=== PATIENT | male | born 1960 | race Caucasian/White ===

== ENCOUNTER 2023-05-29 14:17 | Inpatient (IN) | payer OTHER, SELFPAY ==
[2023-05-29 11:22] VITALS: BP 148/85
[2023-05-29 11:31] VITALS: BP 135/89
--- NOTE | 2023-05-29 11:52 | ED.GENMED ---
History of Present Illness
General
Chief Complaint: Breathing Problem
Source: patient
Exam Limitations: none
Time Seen by Provider: 05/29/23 11:28
Travel History
Have you had any contact with someone who has COVID-19?: No
Do you have any symptoms of coronavirus? Fever > 100 degrees, chills, cough, shortness of breath, sore throat, loss of taste or smell, muscle aches, or headache?: Yes
Symptoms:: sob
History of Present Illness
History of Present Illness:
63-year-old male progressive shortness of breath over 3 to 4 days. Some cough. No pleuritic pain no back pain. History of same. Symptoms are moderate to severe in nature.
Past History
Past History
ED Past Medical History: COPD, HTN and Other (BPH)
ED Past Surgical History: Other
Social History
Tobacco: Smoker (heavy cigar smoker)
Personal:
Living: with family
Employment: Employed
Review of Systems
Review of Systems
All Other Systems: Not applicable
Constitutional: Denies fever
Cardiac: Reports no symptoms
ABD/GI: Reports no symptoms
Phy Exam
Physical Exam
Physical Exam:
GENERAL: Alert and oriented. Mild tachypnea at rest and mildly breathless
EYE: Orbits normal.
NECK: Supple, no significant adenopathy.
ENT: Pharynx without erythema
CARDIAC: Regular rate and rhythm without any obvious murmurs.
LUNGS: Decreased breath sounds diffusely with mild expiratory wheezing more on the right base. Moderate tachypnea
ABDOMEN: Soft, without focal tenderness or distention
NEUROLOGICAL: Alert and oriented , grossly non-focal
SKIN: Warm and dry, no rash or lesion, no discoloration, skin intact.
MUSCULOSKELETAL: No edema,no deformity.Good color
PSYCH: Normal and appropriate interaction.
Scores
Heart Failure Risk
Heart Failure Risk Score: Not Applicable
Course
Orders/Labs/Results
Orders:
Orders
05/29/23 11:25
Electrocardiogram (*1) Urgent
Reason for Study: Shortness of Breath
EKG- Treatment ONCE
05/29/23 11:32
EKG- Treatment ONCE
IV Insert/Care/Rem.- Treatment PRN
Albuterol Sulfate [Ventolin Nebules] 7.5 mg INH R NOW STA
Dexamethasone Sod Phosphate [Decadron] 10 mg IV NOW STA
Ipratropium/Albuterol Sulfate [Duoneb] 3 ml INHALATION R NOW ONE
CR Chest Portable - 1 View Urgent
Comment:
Reason For Exam: sob
Reason Study Needs to be Portable: Unable to Transport
O2 Therapy [RESP] Stat
Titrate/Wean O2 to maintain O2 sat greater than (%): 94
Pulse Ox/cont/shift [RESP] Stat
Quantity: 1
05/29/23 12:01
Basic Metabolic Panel Urgent
Complete Blood Count/With Diff Urgent
NT-proBNP Urgent
Troponin I Urgent
Blood Culture Q30M
LEIGH ANN Source: Blood/Venous
Specimen Description:
Blood Culture Q30M
LEIGH ANN Source: Blood/Venous
Specimen Description:
05/29/23 12:11
COVID-19 Antigen Urgent
Source: Nasal Swab
Influenza A+B Rapid Molecular Urgent
LEIGH ANN Source: Nasal Swab
Specimen Description:
05/29/23 13:53
Admit/Transfer Patient As Directed
Co-Sign Provider:
Level of Care: Inpatient admission
Assign to:: Medical/Surgical
Physician / Group: giovani marion
Diagnosis: acute bronchitis
Reason for Hospitalization: acute bronchitis
Expected length of stay greater than two midnights?: Yes
ELOS- Estimated Length of Stay in days: 3
I certify the patient meets the requirements for IP care: Yes
Code Status As Directed
Resuscitation Status: Full Code
Smoking Cessation Counseling [RESP] Routine
05/29/23 Dinner
Regular
At Your Request: Full Participation
Does patient need a safe tray?: No
05/29/23 15:38
Acetaminophen [Tylenol] 650 mg PO Q4HPRN PRN
Guaifenesin [Mucinex] 600 mg PO [id number] PRN
Ipratropium/Albuterol Sulfate [Duoneb] 3 ml INH R Q4HPRN PRN
05/29/23 15:38
Activity As Directed
Activity Level: As Tolerated
Vital Signs As Directed
Frequency: Per unit guidelines
O2 Therapy [RESP] Routine
Nasal Cannula Liter Flow: 2 LPM
Titrate/Wean O2 to maintain O2 sat greater than (%): 92
Pulse Ox/spot Check [RESP] Routine
Quantity: 1
Ot Eval And Treat Routine
Pt Eval And Treat Routine
Activity Level: As Tolerated
DX Deep Vein Thrombosis Video Routine
05/29/23 16:00
Ipratropium/Albuterol Sulfate [Duoneb] 3 ml INH R QID
05/29/23 16:40
Sputum Culture [Respiratory Culture/Gram Stain] Routine
LEIGH ANN Source: Sputum
Specimen Description:
Date Specimen was Collected: 05/29/23
Time Specimen was Collected: 14:55
05/29/23 18:00
Enoxaparin Sodium [Lovenox] 40 mg SC QPM
05/29/23 20:00
Doxycycline [Vibramycin] 100 mg PO Q12
05/30/23 00:00
Dexamethasone Sod Phosphate [Decadron] 4 mg IV Q12H
05/30/23 05:37
Basic Metabolic Panel IN AM
Complete Blood Count/With Diff IN AM
05/30/23 08:00
Nicotine [Nicoderm Transdermal] 21 mg TRANSDERM DAILY
Rosuvastatin Calcium [Crestor] 20 mg PO DAILY
Tamsulosin [Flomax] 0.4 mg PO DAILY
05/31/23 07:57
Basic Metabolic Panel IN AM
Complete Blood Count/With Diff IN AM
Abnormal Lab Results
05/29/23
12:01
WBC 12.3 H 10^3/uL
(4.8-10.8)
MCH 33.4 H pg
(27.0-31.0)
Abs Immat Gran (auto) 0.1 H 10^3/uL
(0-0.05)
Absolute Neuts (auto) 9.7 H 10^3/uL
(1.4-6.5)
Absolute Lymphs (auto) 0.8 L 10^3/uL
(1.2-3.4)
Absolute Monos (auto) 1.6 H 10^3/uL
(0.1-0.6)
Neutrophils % 79.4 H %
(42.2-75.2)
Lymphocytes % 6.4 L %
(20.5-51.1)
Monocytes % 13.0 H %
(1.7-9.3)
Potassium 3.3 L mmol/L
(3.5-5.1)
Chloride 94 L mmol/L
(98-107)
Glucose 130 H mg/dl
(70-99)
05/29/23 12:01
05/29/23 12:01
Vital Signs
Initial and Last Documented VS:
Initial Vital Signs
Temp Pulse Resp BP Pulse Ox
98.0 F 117 18 148/85 89
05/29/23 11:22 05/29/23 11:22 05/29/23 11:22 05/29/23 11:22 05/29/23 11:22
Last Documented Vital Signs
Temp Pulse Resp BP Pulse Ox
98.2 F 96 18 139/93 94
05/31/23 07:00 05/31/23 07:41 05/31/23 07:41 05/31/23 07:00 05/31/23 08:53
MDM/Problems Addressed
Differential Diagnosis Includes:
Patient with dyspnea shortness of breath.. Likely COPD exacerbation. Workup in progress. Room air pulse ox 88%.
*Radiology
Radiology exam reviewed: preliminary read by ED provider (Negative)
*Pulse Oximetry
Patient hypoxic: yes
*EKG
Interpreted by ED Provider?: Yes
Comparison EKG: changes noted
Heart Rate: 112
Rate: tachycardiac
Rhythm: sinus
[place]: normal axis
Interval: normal interval
QRS Pattern: normal QRS
Ischemia: no ischemia
*Medical Typist Interpretation
Rate: tachycardiac
Interpretation: abnormal
Heart Rate: 110
Rhythm: sinus
*Critical Care Note
Total Time (30-74mins, 75-104mins- exclusive of procedures): Not Applicable
Data Reviewed
Review of Other/Old Records Reveals: Labs, Records, Radiology Studies and Discharge Summary
Update Note
Update Note:
Patient mildly improved on the nebs although still with diffuse expiratory wheezing. Hypoxic on ER arrival. Warrants admission for further care
ED Attending Note
-
Portions of this chart may have been created with voice recognition software.� Occasional wrong word or��sound alike� substitutions may have occurred due to the inherent limitations of voice recognition software.
Discharge Plan
Departure
Patient Disposition: Admit
Date of Disposition: 05/29/23
Time of Disposition: 12:58
Presentation/result/management discussed w/ accepting MD/DO: Hospitalist
Discharge Problem:
COPD exacerbation
Interventions
Interventions:
*Risk Screen - Suicide Last Done: 05/29/23 11:22
*General Assessment Last Done: 05/29/23 11:22
*Neglect/Abuse Screening Last Done: 05/29/23 11:22
ED- Fall Risk Assessment Last Done: 05/29/23 12:25
*ED COVID-19 Vaccine History Last Done: 05/29/23 11:22
*Nursing Disposition Last Done: 05/29/23 16:05
ED- Cardiac Assessment Last Done: 05/29/23 12:25
ED- Pulmonary Assessment Last Done: 05/29/23 12:25
Discharge Date and Time
Discharge Date/Time: 05/29/23 16:05
[2023-05-29] MEDS: DUONEB 3 ML INHALATION (12:05)
[2023-05-29] MEDS: DECADRON 10 MG IV (12:05)
[2023-05-29] MEDS: VENTOLIN NEBULES 7.5 MG INH (12:05)
[2023-05-29 12:21] VITALS: BMI 25.2
[2023-05-29 12:22] LABS: % Basophils 0.5 % (0-2); % Eosinophils 0.2 % (0-6); % Immature Granulocytes 0.5 % (0-0.5); % Lymphocytes 6.4 % (20.5-51.1); % Neutrophils 79.4 % (42.2-75.2); Absolute Basophils 0.1 10^3/uL (0-0.2); Absolute Immature Granulocytes 0.1 10^3/uL (0-0.05); Absolute Lymphocytes 0.8 10^3/uL (1.2-3.4); Absolute Monocytes 1.6 10^3/uL (0.1-0.6); Absolute Neutrophils 9.7 10^3/uL (1.4-6.5); Hematocrit 44.6 % (39.0-52.0); Mean Corp Hgb Conc. 35.9 g/dL (33.0-37.0); Mean Corpuscular Hgb 33.4 pg (27.0-31.0); Mean Corpuscular Volume 93.1 fL (80.0-94.0); Mean Platelet Volume 10.1 fL (7.4-10.4); Nucleated Red Blood Cells % 0 % (-); Platelet Count 157 10^3/uL (130-400); Red Blood Cell Count 4.79 10^6/uL (4.70-6.10); Red Cell Dist. Width 11.7 % (11.5-14.5); White Blood Cell Count 12.3 10^3/uL (4.8-10.8)
[2023-05-29 12:35] LABS: Blood Urea Nitrogen 17 mg/dl (9-20); Calcium 9.2 mg/dl (8.4-10.2); Carbon Dioxide 30 mmol/L (22-30); Chloride 94 mmol/L (98-107); Estimated Creatinine Clearance 102 ml/min; Glucose 130 mg/dl (70-99); Potassium 3.3 mmol/L (3.5-5.1); Sodium 136 mmol/L (135-145); eGFR > 60.00
[2023-05-29 12:47] LABS: NT-proBNP 101 pg/ml; Troponin I < 0.012 ng/ml
[2023-05-29 12:48] LABS: COVID-19 Antigen Negative (Negative)
[2023-05-29 13:00] VITALS: BP 153/88
--- NOTE | 2023-05-29 13:26 | HPS.HSE ---
Addendum entered and electronically signed by Aaron Tucker MD 05/29/23 14:17:
I saw and examined the patient.
The DAMASCENER or PA's note was reviewed and I agree with the note.
Comment: Patient relates a known history of COPD active smoker still not oxygen dependent but has had 4 days of productive tenacious thick and green sputum with cough also may have underlying history of alcohol abuse with presents with no definitive
febrile course and only minor leukocytosis with some minor interstitial changes on chest x-ray with no definitive infiltrate. Presently on 2 L nasal flow oxygen. Patient was given a single dose of dexamethasone 10 mg IV in the ED along with
albuterol neb with some relief present pulse ox of 95% on O2 and looks more comfortable.
Lungs show some crackles more so on the left than the right without definitive wheezing no accessory muscle usage
COVID and influenza negative
Patient has borderline tachycardia with sinus rhythm on telemetry
Abdomen benign
No lower extremity edema
Degree of bronchospasm at least presently not impressive and would place lunch low-dose Decadron every 12 and low threshold to discontinue tomorrow if similar auscultation exam
Empiric doxycycline/agree with sending sputum
Nicotine patch although patient may refuse states he has them at home.'
Titrate oxygen to need
Monitor for alcohol withdrawal
Agree with holding hydrochlorothiazide till correction of hypokalemia
Rest of the exam and assessment and plan as outlined by DAMASCENER and agreed upon
Icombination of underlying COPD/bronchitis/viral origin
Original Note:
Family Physician
-
Family Physician: Adriane Padilla
Chief Complaint
-
Shortness of breath, cough
History of Present Illness
63-year-old male complaining of shortness of breath over the past 3 to 4 days with a green productive cough. He denies fever, chills, chest pain, abdominal pain, nausea, vomiting, diarrhea, urinary symptoms, sick contacts. He has past medical
history of COPD, active smoker, alcohol abuse BPH, erectile dysfunction, HLD.
Medical History
Past Medical History
Past Medical History: Reports Other (COPD, active smoker, alcohol abuse BPH, erectile dysfunction, HLD)
Past Surgical History: Reports None
Social History
Tobacco: Smoker (29-year 1 pack/day)
Alcohol: Daily (2 beers and 4 beers on 2 out of 4 weekends)
Personal: (Currently in process of divorce)
Living: With Family
Employment: Employed
Family History
Family History: Other (Mother age 59 lupus, father age 61 CHF)
Allergies / Home Medications
Allergies reflects when Allergies were last updated in [facility].
Home Medications with original date entered in [facility]
Allergy/Medication List:
Allergies
Allergy/AdvReac Type Severity Reaction Status Date / Time
No Known Allergies Allergy Verified 05/29/23 11:24
Home Medications
albuterol sulfate 90 mcg/actuation aerosol inhaler 2 puff inhalation R Q4HPRN PRN sob/wheezing 06/05/22
hydrochlorothiazide 25 mg tablet 25 mg PO DAILY Fluid retention/Swelling 06/05/22
rosuvastatin 20 mg tablet 20 mg PO DAILY High cholesterol 06/05/22
tamsulosin 0.4 mg capsule (Flomax) 0.4 mg PO DAILY #20 caps 06/26/22
Motrin 2 tab PO BIDPRN PRN mild pain 05/29/23
Vitamin D1 1 tab PO DAILYPRN PRN supplement 05/29/23
guaifenesin 600 mg tablet, extended release 12 hr (Mucinex) 600 mg PO [id number] PRN cough 05/29/23
sildenafil 100 mg tablet 100 mg PO DAILYPRN PRN erectile dysfunction 05/29/23
tadalafil 20 mg tablet 20 mg PO DAILYPRN PRN erectile dysfunction 05/29/23
tiotropium 2.5 mcg-olodaterol 2.5 mcg/actuation mist for inhalation (Stiolto Respimat) 2 puff inhalation R DAILY 05/29/23
Review of Systems
-
History Source: Patient
A 12 point ROS was completed and negative except as noted: Yes
Constitutional: Denies Fever, Fatigue or Chills
EENT: Denies Sore Throat or Runny Nose
Respiratory: Reports Cough (Productive green in color) and Trouble Breathing
Cardiac: Denies Chest Pain, Diaphoresis, Palpitations or Syncope
Abdomen/GI: Denies Abdominal Pain, Nausea, Vomiting or Diarrhea
: Denies Dysuria, Frequency, Flank Pain, Incontinence, Difficulty Voiding or Urgency
Musculoskeletal: Denies Joint Pain or Edema
Skin: Denies Itching or Rash
Neurological: Denies Dizzy, Headache or Weakness
Endocrine: Reports No Symptoms
Hematologic/Lymphatic: Reports No Symptoms
Psych: Reports Calm
Physical Exam
Vital Signs
Vital Signs
Temp Pulse Resp BP Pulse Ox
98.0 F 106 24 153/88 94
05/29/23 11:22 05/29/23 13:15 05/29/23 13:15 05/29/23 13:00 05/29/23 13:15
Physical Exam
General: Comfortable and Conversant; No Pain, Fever or Chills
HEENT: NormoCephalic, Anicteric, PERRLA, [place] Conjunctivae and No Ptosis
Respiratory: Other (Decreased bilaterally throughout both lung galvez); No Wheezes
Cardiac: S1/S2 and Regular Rhythm; No Murmur, Rub, Gallop or Peripheral Edema
Breast: Deferred by me
GI: Soft, Non Tender, Normal Bowel Sounds and No Hepatosplenomegaly
Rectal: Deferred by Provider
Genito-urinary: Deferred by me
Musculoskeletal: No Clubbing, No Cyanosis and No Edema
Skin: Warm and Dry; No Rash or Jaundice
Neuro: AO x 3, No Motor Deficits and Nonfocal/grossly intact; No No Sensory Deficits or Slurred Speech
Psych: Calm
Laboratory Results
-
05/29/23 12:01
05/29/23 12:01
Laboratory Results
Troponin I < 0.012 ng/ml 05/29/23 12:01
Impression/Plan
-
Impression/plan:
Admit to MedSurg
#Acute hypoxic resp insuff 2/2 to acute on chronic COPD exacerbation vs acute bronchitis
92% 2 LNC, 153/88
BNP 101, COVID-negative
-IV Decadron 4 mg every 12 hours
-Sputum culture
-Continue DuoNebs
-Doxycycline 100 mg every 12 hours
-Follow CBC, BMP
-PT/OT eval
CXR: Pulmonary interstitial markings at least top normal canals with mild interstitial edema or pneumonitis
#Hypokalemia likely secondary to diuretics
-K3.3 will give 40 KCl follow BMP
-Hold HCTZ 25 mg daily
EKG: Sinus tach 112 bpm, QTc 469 MS
#Nicotine abuse
1 pack/day x 29 years
-Cessation advised
-Nicotine transdermal patch
#Alcohol abuse
Reports drinks 2 beers a day and approximately 4 beers on weekends 2 out of 4
Cessation advised
MSAs screen with protocol
#BPH
#Hx erectile dysfunction
-Continue Flomax
-Hold sildenafil as needed
#HLD
-Continue Crestor 20 mg daily
DVT prophylaxis
Subcu Lovenox
Full code
[2023-05-29 14:00] VITALS: BP 136/86
[2023-05-29 15:45] VITALS: BP 152/83; BMI 25.9
[2023-05-29] MEDS: DUONEB INH (15:51)
[2023-05-29 16:27] LABS: INR 1.08; PT 13.8 Sec (11.4-14.6)
[2023-05-29 16:28] LABS: APTT 45.5 Sec (23.4-35.0)
[2023-05-29 16:34] LABS: GGTP 80 U/L (15-73); Magnesium 2.3 mg/dl (1.6-2.3); Phosphorus 3.9 mg/dl (2.5-4.5)
[2023-05-29 16:35] LABS: Alcohol None Detected
[2023-05-29 16:41] LABS: B-Hydroxybutyrate 2.21 mmol/L (0.02-0.27)
[2023-05-29] MEDS: MUCINEX 600 MG PO (18:05)
[2023-05-29] MEDS: LOVENOX 40 MG SC (18:05)
[2023-05-29] MEDS: VIBRAMYCIN 100 MG PO (20:00)
[2023-05-29] MEDS: THIAMINE INJECTION 200 MG IV (20:01)
[2023-05-29] MEDS: DUONEB 3 ML INH (20:18)
[2023-05-29] MEDS: KCL 40 MEQ PO (21:28)
[2023-05-29 23:17] VITALS: BP 137/85
[2023-05-29] MEDS: DECADRON 4 MG IV (23:30)
[2023-05-30 00:04] LABS: Urine Albumin 1+ (Neg - Trace); Urine Bilirubin 1+ (Negative); Urine Character Clear (Clear); Urine Color Amber; Urine Glucose 2+ (Negative); Urine Ketone 2+ (Negative); Urine Leukocyte Trace (Negative); Urine Nitrite Negative (Negative); Urine Occult Blood Negative (Negative); Urine Urobilinogen Negative (Neg - 1+)
[2023-05-30 00:29] LABS: Amphetamines Negative (Negative); Barbiturates Negative (Negative); Benzodiazepines Negative (Negative); Buprenorphine Negative (Negative); Cocaine Negative (Negative); Marijuana Negative (Negative); Methadone Negative (Negative); Methamphetamines Negative (Negative); Opiates Negative (Negative); Phencyclidine Negative (Negative); Tricyclic Antidepressants Negative (Negative)
[2023-05-30 01:08] LABS: Urine Bacteria Moderate (Negative); Urine White Cell 0-2 /HPF (0-5)
[2023-05-30] MEDS: MUCINEX 600 MG PO ×2 (06:12→19:57)
[2023-05-30 06:31] LABS: % Basophils 0.3 % (0-2); % Immature Granulocytes 0.9 % (0-0.5); % Lymphocytes 5.2 % (20.5-51.1); % Monocytes 5.7 % (1.7-9.3); % Neutrophils 87.9 % (42.2-75.2); Absolute Immature Granulocytes 0.1 10^3/uL (0-0.05); Absolute Lymphocytes 0.6 10^3/uL (1.2-3.4); Absolute Monocytes 0.6 10^3/uL (0.1-0.6); Absolute Neutrophils 9.6 10^3/uL (1.4-6.5); Hematocrit 42.8 % (39.0-52.0); Hemoglobin 15.1 g/dL (13.0-18.0); Mean Corp Hgb Conc. 35.3 g/dL (33.0-37.0); Mean Corpuscular Hgb 32.4 pg (27.0-31.0); Mean Corpuscular Volume 91.8 fL (80.0-94.0); Mean Platelet Volume 10.3 fL (7.4-10.4); Nucleated Red Blood Cells % 0 % (-); Platelet Count 173 10^3/uL (130-400); Red Blood Cell Count 4.66 10^6/uL (4.70-6.10); Red Cell Dist. Width 11.6 % (11.5-14.5); White Blood Cell Count 10.9 10^3/uL (4.8-10.8)
[2023-05-30 06:38] LABS: Blood Urea Nitrogen 17 mg/dl (9-20); Calcium 8.8 mg/dl (8.4-10.2); Carbon Dioxide 31 mmol/L (22-30); Chloride 99 mmol/L (98-107); Estimated Creatinine Clearance 102 ml/min; Glucose 186 mg/dl (70-99); Potassium 3.9 mmol/L (3.5-5.1); Sodium 135 mmol/L (135-145); eGFR > 60.00
[2023-05-30 07:00] VITALS: BP 135/84
[2023-05-30] MEDS: DUONEB 3 ML INH ×4 (07:25→19:56)
[2023-05-30] MEDS: NICODERM TRANSDERMAL 21 MG TRANSDERM (08:36)
[2023-05-30] MEDS: FOLVITE 1 MG PO (08:36)
[2023-05-30] MEDS: FLOMAX 0.400000000000000022 MG PO (08:36)
[2023-05-30] MEDS: VIBRAMYCIN 100 MG PO ×2 (08:37→19:57)
[2023-05-30] MEDS: FLUSH (NSS) 2 FLUSH IV (08:37)
[2023-05-30] MEDS: CRESTOR 20 MG PO (08:37)
[2023-05-30] MEDS: THIAMINE INJECTION 200 MG IV ×2 (08:37→19:58)
[2023-05-30] MEDS: TYLENOL 650 MG PO (08:42)
--- NOTE | 2023-05-30 09:07 | W.PN.HOSP.TC ---
Today's Communication/Plan
-
Overall feeling better
Will transition to oral prednisone
Continue doxycycline
Hope to have home O2 ambulatory trial tomorrow
Assessment / Plan
Assessment / Plan
#Acute hypoxic resp insuff 2/2 to acute on chronic COPD exacerbation vs acute bronchitis
92% 2 LNC, 153/88
BNP 101, COVID-negative
-IV Decadron 4 mg every 12 hours/will transition oral prednisone today
-Sputum culture
-Continue DuoNebs
-Doxycycline 100 mg every 12 hours/leukocytosis trending down
-Follow CBC, BMP
-PT/OT eval
� � CXR:�Pulmonary interstitial markings at least top normal canals with mild interstitial edema or pneumonitis
#Hypokalemia likely secondary to diuretics
-K3.3 will give 40 KCl follow BMP
-Hold HCTZ 25 mg daily
EKG:�Sinus tach 112 bpm, QTc 469 MS
#Nicotine abuse
1 pack/day x 29 years
-Cessation advised
-Nicotine transdermal patch
#Alcohol abuse
Reports drinks 2 beers a day and approximately 4 beers on weekends 2 out of 4
Cessation advised
MSAs screen with protocol
#BPH
#Hx erectile dysfunction
-Continue Flomax
-Hold sildenafil as needed
#HLD
-Continue Crestor 20 mg daily
DVT prophylaxis
Subcu Lovenox
Full code
Anticipated Discharge: Within 24 hours
Subjective/Interval History
-
Date of Service: May 30, 2023
Some improvement less intrusive cough still productive remains on 2 L nasal flow oxygen.
Objective Data
-
Labs:
Laboratory Results
05/30/23
05:37
WBC 10.9 H
Hgb 15.1
Hct 42.8
Plt Count 173
Sodium 135
Potassium 3.9
Chloride 99
Carbon Dioxide 31 H
BUN 17
Creatinine 0.9
Glucose 186 H
Calcium 8.8
Vital Signs:
Vital Signs
Temp Pulse Resp BP Pulse Ox
98.3 F 82 18 135/84 96
05/30/23 07:00 05/30/23 07:28 05/30/23 07:28 05/30/23 07:00 05/30/23 07:28
I&O
05/29/23 05/30/23 05/31/23
06:59 06:59 06:59
Intake Total 360 / 360
Balance 360 / 360
Review of Systems
-
History Source: Patient
Constitutional: Reports No Symptoms; Denies Fever
EENT: Reports No Symptoms Reported
Respiratory: Reports Cough and Wheezing
Cardiac: Reports No Symptoms
Abdomen/GI: Reports No Symptoms
Genitourinary: Reports No Symptoms
Physical Exam
-
General: Well Developed
HEENT: Normocephalic
Respiratory: Wheezes and Rhonchi
Cardiac: Regular Rhythm
GI: Soft and Nontender
Musculoskeletal: No Edema
Skin: Warm
Neuro: Awake, Alert, Oriented and AO x 3
Psych: Calm
Data Reviewed
-
Total Time Spent with Patient (in minutes): 45
Labs: Labs Reviewed by me (White count downtrending to 10.9 from 12 and half/GGT elevated at 880/proBNP 101 troponin normal)
[2023-05-30 09:32] VITALS: PULSE 86; O2SAT 95
--- NOTE | 2023-05-30 09:45 | PTOTSP ---
Patient with good insight into safety with transfers and ambulation without use of AD. Able to manage O2 line safely within room for mobility. Educated on importance of mobility throughout the day to maintain strength and endurance; verbalized
understanding.
Does not demonstrate continued need for skilled therapy and will be discharged at this time. If needs change, please re-consult.
--- NOTE | 2023-05-30 10:23 | PTOTSP ---
Orders received. Chart reviewed. Pt currently at independent level with basic self care, transfers and mobility in room and bathroom without AD. Nursing in agreement. No skilled OT indicated at this time. Will sign off.
[2023-05-30 15:00] VITALS: BP 149/97
--- NOTE | 2023-05-30 16:36 | CM ---
Chart reviewed. Spoke with pt at bedside
Pt lives with in multistory home
Independent, drives
Denies DME; past HH/SNF
+ smoker - reports has been using 'patch' - plans to continue to abstain
Reports consumes alcohol occasionally - offered out patient resources/referral to [facility] - declined
PCP - Dr Padilla
Pharm - [facility]
Plan - anticipate home no needs
[2023-05-30] MEDS: LOVENOX 40 MG SC (18:10)
--- NOTE | 2023-05-30 20:45 | PTCARENOTE ---
Pt took a short walk around small loop of nurses station without O2 on. Pt rang to check O2 saturation. 20:40 pt O2 sat 88% on room air, 20:41 O2 sat 90% on room air. Applied 2L of oxygen, which pt has been on during hospitalization, sating 92%. HR
in the 100s. Pt has no complaints, sounds short of breath but denies.
[2023-05-30 23:33] VITALS: BP 137/84
[2023-05-31 07:00] VITALS: BP 139/93
[2023-05-31] MEDS: DUONEB 3 ML INH (07:31)
[2023-05-31 08:19] LABS: % Basophils 0.5 % (0-2); % Immature Granulocytes 2.5 % (0-0.5); % Lymphocytes 10.1 % (20.5-51.1); % Neutrophils 76.9 % (42.2-75.2); Absolute Basophils 0.1 10^3/uL (0-0.2); Absolute Immature Granulocytes 0.3 10^3/uL (0-0.05); Absolute Lymphocytes 1.3 10^3/uL (1.2-3.4); Absolute Monocytes 1.3 10^3/uL (0.1-0.6); Hematocrit 42.7 % (39.0-52.0); Hemoglobin 14.8 g/dL (13.0-18.0); Mean Corp Hgb Conc. 34.7 g/dL (33.0-37.0); Mean Corpuscular Hgb 32.2 pg (27.0-31.0); Mean Platelet Volume 9.9 fL (7.4-10.4); Nucleated Red Blood Cells % 0 % (-); Platelet Count 202 10^3/uL (130-400); Red Blood Cell Count 4.59 10^6/uL (4.70-6.10); Red Cell Dist. Width 11.6 % (11.5-14.5)
--- NOTE | 2023-05-31 08:36 | W.DS.TRANS ---
DC Summary - [employer] P[employer]asing [employer]
-
Discharge Instructions:
Discharge Diagnosis/Procedures Exacerbation of COPD/bronchitis
Hypoxic respiratory insufficiency
Diet No restrictions
Activity No restrictions
Driving Restrictions As prior to admission
Instructions:
Stand-Alone Forms:
Changes to Home Medications: Yes
Discharge Medications:
DC Medications w/original date entered in [facility]
albuterol sulfate 90 mcg/actuation aerosol inhaler 2 puff inhalation R Q4HPRN PRN sob/wheezing 06/05/22
hydrochlorothiazide 25 mg tablet 25 mg PO DAILY Fluid retention/Swelling 06/05/22
rosuvastatin 20 mg tablet 20 mg PO DAILY High cholesterol 06/05/22
tamsulosin 0.4 mg capsule (Flomax) 0.4 mg PO DAILY #20 caps 06/26/22
Vitamin D1 1 tab PO DAILYPRN PRN supplement 05/29/23
guaifenesin 600 mg tablet, extended release 12 hr (Mucinex) 600 mg PO [id number] PRN cough 05/29/23
sildenafil 100 mg tablet 100 mg PO DAILYPRN PRN erectile dysfunction 05/29/23
tadalafil 20 mg tablet 20 mg PO DAILYPRN PRN erectile dysfunction 05/29/23
tiotropium 2.5 mcg-olodaterol 2.5 mcg/actuation mist for inhalation (Stiolto Respimat) 2 puff inhalation R DAILY Lung/Breathing Issues 05/29/23
doxycycline hyclate 100 mg capsule 100 mg PO Q12 #10 caps 05/31/23
prednisone 20 mg tablet 40 mg PO DAILY #3 tabs 05/31/23
Home Medication Changes
doxycycline hyclate 100 mg capsule 100 mg PO Q12 #10 caps 05/31/23
prednisone 20 mg tablet 40 mg PO DAILY #3 tabs 05/31/23
Pending Results: No
Total time spent discharging patient (in min): 38
[2023-05-31] MEDS: FOLVITE 1 MG PO (08:48)
[2023-05-31] MEDS: FLOMAX 0.400000000000000022 MG PO (08:48)
[2023-05-31] MEDS: CRESTOR 20 MG PO (08:48)
[2023-05-31] MEDS: DELTASONE 40 MG PO (08:48)
[2023-05-31] MEDS: FLUSH (NSS) 1 FLUSH IV (08:49)
[2023-05-31] MEDS: THIAMINE INJECTION 200 MG IV (08:49)
[2023-05-31] MEDS: NICODERM TRANSDERMAL 21 MG TRANSDERM (08:49)
[2023-05-31] MEDS: MUCINEX 600 MG PO (09:01)
[2023-05-31] MEDS: VIBRAMYCIN 100 MG PO (09:20)
[2023-05-31 09:21] LABS: Blood Urea Nitrogen 23 mg/dl (9-20); Calcium 9.2 mg/dl (8.4-10.2); Carbon Dioxide 29 mmol/L (22-30); Chloride 104 mmol/L (98-107); Estimated Creatinine Clearance 102 ml/min; Glucose 153 mg/dl (70-99); Potassium 3.8 mmol/L (3.5-5.1); Sodium 138 mmol/L (135-145); eGFR > 60.00
--- NOTE | 2023-05-31 09:56 | CM ---
MD entered order for discharge.
Spoke with patient he said he was ready for discharge today .
He declined need for VN at dc.
His friend Salas will drive him home.
As per chart pt on room air. Pox 94 %.
TT Nicole C to confirm room air status.
PLAN Home no needs
--- NOTE | 2023-05-31 11:04 | W.DCSUMMARY ---
Discharge Summary
Discharge Data
Date of Admission: 05/29/23
Date of Discharge: 05/31/23
-
Pending Results: No
Hospital Course
63-year-old male known history of COPD and still an active smoker only reformed a week ago presents with 4 days of productive tenacious thick green sputum production and initial hypoxia requiring 2 L on presentation on exam patient presented with
apparent clinical presentation of acute bronchitis with lung exam showing basilar crackles without definitive wheezing or accessory muscle usage./COVID and influenza were negative patient presented with tachycardia in the setting of sinus rhythm
He was placed on empiric course of doxycycline, nicotine patch for smoking cessation he was monitored for alcohol withdrawal although that was not manifest throughout the length of his admission and was minimal at best. We held his
hydrochlorothiazide due to presentation of initial hypokalemia
He eventually had some benefit also with the introduction of steroids which seemed to relieve a lot of his overproductive secretions and sputum and sputum eventually cleared from his purulent presentation. He was continued on DuoNeb treatments and
continue to require low-flow oxygen on exertion. He did not qualify for home oxygen ambulation for home O2 and improved to the point that felt was stable for discharge on 31 May/he will finish his course of doxycycline and prednisone will be
for another 3 days and stopped he will resume his prior course of Stiolto Respimat he was instructed to remain abstinent from further's cigarette use and promises to do so
Discharge diagnosis will be acute exacerbation of COPD/bronchitis
Discharge Plan
-
Patient Disposition: Home (Routine Discharge)
Discharge Diagnosis/Procedures: Exacerbation of COPD/bronchitis
Hypoxic respiratory insufficiency
Diet: No restrictions
Activity: No restrictions
Driving Restrictions: As prior to admission
Referrals:
Adriane Padilla, DO [Family Provider] - in less than 1 week
Prescriptions:
New
doxycycline hyclate 100 mg Capsule
100 mg PO Q12 Qty: 10 0RF
prednisone 20 mg Tablet
40 mg PO DAILY Qty: 3 0RF
Continued
hydrochlorothiazide 25 mg Tablet
25 mg PO DAILY
albuterol sulfate 90 mcg/actuation Hfa Aerosol Inhaler
2 puff INHALATION R Q4HPRN PRN (Reason: sob/wheezing)
rosuvastatin 20 mg Tablet
20 mg PO DAILY
tamsulosin [Flomax] 0.4 mg capsule
0.4 mg PO DAILY Qty: 20 0RF
sildenafil 100 mg tablet
100 mg PO DAILYPRN PRN (Reason: erectile dysfunction)
tadalafil 20 mg tablet
20 mg PO DAILYPRN PRN (Reason: erectile dysfunction)
Stiolto Respimat 2.5-2.5 mcg/actuation mist
2 puff INHALATION R DAILY
Vitamin D1
1 tab PO DAILYPRN PRN (Reason: supplement)
guaifenesin [Mucinex] 600 mg tablet extended release 12hr
600 mg PO [id number] PRN (Reason: cough)
Discontinued
Motrin
2 tab PO BIDPRN PRN (Reason: mild pain)
Discharge Orders:
Discharge Patient (As Directed); Ordered 05/31/23
Ordered By: Aaron Tucker
Discharge Date and Time
Discharge Date/Time: 05/31/23 10:55
== END 2023-05-31 10:55 | disposition home or self-care (01) | DRG 192 ==
LOC: 4 EAST ACU 14:17
PROVIDERS: Clinical Nurse Specialist Family Health; ADMITTING PHYSICIAN Internal Medicine; EMERGENCY PHYSICIAN Emergency Medicine; FAMILY PHYSICIAN Family Medicine
DX: J44.0 Chronic obstructive pulmonary disease with (acute) lower respiratory infection (principal); J20.9 Acute bronchitis, unspecified; N40.0 Benign prostatic hyperplasia without lower urinary tract symptoms; J44.1 Chronic obstructive pulmonary disease with (acute) exacerbation; E78.5 Hyperlipidemia, unspecified; F10.10 Alcohol abuse, uncomplicated; R09.02 Hypoxemia; Z11.52 Encounter for screening for COVID-19; E87.6 Hypokalemia
CPT/HCPCS: 71045; 80048; 80306; 81003; 81015; 82010; 82077; 82977; 83735; 83880; 84100; 84484; 85025; 85610; 85730; 87040; 87070; 87077; 87185; 87205; 87502; 87811; 93005; 94640; 96374; 97116; 97161; 99285

== ENCOUNTER → 2023-11-07 11:01 | Outpatient (REF) | payer OTHER, SELFPAY | LOC: HWCARD 11:01 | PROVIDERS: ATTENDING PHYSICIAN Family Medicine | DX: R00.0 Tachycardia, unspecified (principal); F17.209 Nicotine dependence, unspecified, with unspecified nicotine-induced disorders | CPT/HCPCS: 93005 ==

== ENCOUNTER → 2023-11-21 13:40 | Outpatient (REF) | payer OTHER, SELFPAY | LOC: HWRCS 13:40 | PROVIDERS: ATTENDING PHYSICIAN Family Medicine | DX: R00.0 Tachycardia, unspecified (principal); F17.209 Nicotine dependence, unspecified, with unspecified nicotine-induced disorders | CPT/HCPCS: 93306 ==

== ENCOUNTER → 2024-10-24 12:10 | Outpatient (REF) | payer OTHER, SELFPAY | LOC: HWRAD 12:10 | PROVIDERS: ATTENDING PHYSICIAN Nurse Practitioner Family | DX: J44.1 Chronic obstructive pulmonary disease with (acute) exacerbation (principal) | CPT/HCPCS: 71046; 93005 ==

== ENCOUNTER → 2024-10-28 15:12 | Outpatient (REF) | payer OTHER, SELFPAY | LOC: RCS 15:12 | PROVIDERS: ATTENDING PHYSICIAN Family Medicine | DX: R94.31 Abnormal electrocardiogram [ECG] [EKG] (principal) | CPT/HCPCS: 93005 ==